=== PATIENT | female | born 1985 | race Caucasian/White ===

== ENCOUNTER 2017-02-06 13:40 | Emergency (ER) | payer SELFPAY ==
[~2017-02-06] VITALS: Ht 162.6 cm; Wt 56.2 kg
[2017-02-06] MEDS ORDERED: MOTRIN600 MG PO (16:18)
[2017-02-06 17:20] VITALS: BP 117/72
== END 2017-02-06 17:21 | disposition home or self-care (01) ==
LOC: EME 13:40
PROC: 2W3DX1Z Immobilization of Left Lower Arm using Splint (ICD-10-PCS; principal; 2017-02-06)
DX: S52.502A Unspecified fracture of the lower end of left radius, initial encounter for closed fracture (principal); W19.XXXA Unspecified fall, initial encounter; Z88.0 Allergy status to penicillin
CPT/HCPCS: 73110; 99281; 99284